=== PATIENT | male | born 1975 | race Caucasian/White ===

== ENCOUNTER 2017-09-11 09:19 | Emergency (ER) | payer BC ==
[2017-09-11 09:58] VITALS: BP 125/77
[2017-09-11] MEDS ORDERED: Ibuprofen TAB* 400 MG PO ONE (10:12)
--- NOTE | 2017-09-11 10:22 | UC ---
Skin Complaint HPI - HPI Summary HPI Summary: 1 week of pain and swelling around left index finger nail---no drainage no injury no fb---has not tried any treatment at home - History of Current Complaint Chief Complaint: UCSkin Time Seen by Provider: 09/11/17 09:52 Stated Complaint: LFT INDEX FINGER INJURY Hx Obtained From: Patient Onset/Duration: Sudden Onset, Lasting Weeks, Still Present Timing: Constant Onset Severity: Moderate Current Severity: Moderate Pain Intensity: 4 Pain Scale Used: 0-10 Numeric Location: Discrete Character: Swelling, Pain, Redness Aggravating Factor(s): Touch Alleviating Factor(s): Nothing Associated Signs & Symptoms: Negative: Drainage, Red Streaks, Joint Swelling - Allergy/Home Medications Allergies/Adverse Reactions: Allergies Allergy/AdvReac Type Severity Reaction Status Date / Time No Known Allergies Allergy Verified 09/11/17 09:46 Home Medications: Home Medications Ibuprofen TAB* [Motrin TAB* 800 MG] 800 mg PO ONCE PRN 09/11/17 [History Confirmed 09/11/17] Levothyroxine TAB* [Synthroid TAB*] 175 mcg PO DAILY 09/11/17 [History Confirmed 09/11/17] Review of Systems Constitutional: Negative Skin: Other - erythema pain and swelling around left index finger nail Eyes: Negative ENT: Negative Respiratory: Negative Cardiovascular: Negative Gastrointestinal: Negative Genitourinary: Negative Motor: Negative Neurovascular: Negative Musculoskeletal: Negative Neurological: Negative Psychological: Negative Is Patient Immunocompromised?: No All Other Systems Reviewed And Are Negative: Yes PMH/Surg Hx/FS Hx/Imm Hx Previously Healthy: No Endocrine History: Hypothyroidism - Surgical History Surgical History: Yes Surgery Procedure, Year, and Place: sinusitis Dr. Licona - Family History Known Family History: Positive: None - Social History Occupation: Employed Full-time Lives: With Family Alcohol Use: Occasionally Substance Use Type: None Smoking Status (MU): Never Smoked Tobacco - Immunization History Most Recent Influenza Vaccination: not 2016/2017 Physical Exam Triage Information Reviewed: Yes Appearance: Well-Appearing, No Pain Distress, Well-Nourished Vital Signs: Initial Vital Signs Temp 98.5 F 09/11/17 09:48 Pulse 68 09/11/17 09:48 Resp 18 09/11/17 09:48 BP 125/77 09/11/17 09:48 Pulse Ox 100 09/11/17 09:48 Vital Signs Reviewed: Yes Eye Exam: Normal Eyes: Positive: Conjunctiva Clear ENT Exam: Normal ENT: Positive: Normal ENT inspection, Hearing grossly normal. Negative: TMs normal, Trismus, Muffled voice, Hoarse voice, Sinus tenderness Dental Exam: Normal Neck exam: Normal Neck: Positive: Supple, Nontender, No Lymphadenopathy Respiratory Exam: Normal Respiratory: Positive: Chest non-tender, No respiratory distress, No accessory muscle use Cardiovascular Exam: Normal Cardiovascular: Positive: RRR, Pulses Normal, Brisk Capillary Refill Musculoskeletal Exam: Normal Musculoskeletal: Positive: Strength Intact, ROM Intact, No Edema Neurological Exam: Normal Neurological: Positive: Alert, Muscle Tone Normal Psychological Exam: Normal Skin Exam: Other Skin: Positive: Other - pain swelling erythmea fluctulant mass lateral left index finger nail Diagnostics - Laboratory Diagnostic Studies Completed/Ordered: wound culture obtained Re-Evaluation - Re-Evaluation Second Eval Change: Improved - tolerated well moderate amount of lurulent drainage , dressing applied Course/Dx - Course Course Of Treatment: warm soaks , bactrim, ibuprofen wound culture follow with pcp prn - Diagnoses Provider Diagnoses: left index finger paronychia I&D Procedures - Incision and Drainage Site: left index fingernail lateral Anesthesia: Other - none Instrument(s): Scalpel Packing: Other - none Discharge - Discharge Plan Condition: Stable Disposition: HOME Prescriptions: Ibuprofen TAB* [Motrin TAB* 800 MG] 800 mg PO Q8H PRN #30 tab PRN Reason: pain Sulfamethox/Trimethoprim DS* [Bactrim DS 800/160 TAB*] 1 tab PO BID #20 tab Patient Education Materials: Paronychia (ED), Abscess Incision and Drainage (DC ), Warm Compress or Soak (ED) Forms: *Work Release Referrals: [facility] [Outside] - If Needed
--- NOTE | 2017-09-12 07:56 | UC ---
- Progress Note Progress Note: RN to call pt. + stapanna, sens pending. Continue antibiotic unless we notify otherwise. Re-Evaluation - Re-Evaluation Second Eval Change: Improved - tolerated well moderate amount of lurulent drainage , dressing applied
== END 2017-09-11 10:31 | disposition home or self-care (01) ==
LOC: UCCORT 09:19
DX: L03.012 Cellulitis of left finger (principal); B95.61 Methicillin susceptible Staphylococcus aureus infection as the cause of diseases classified elsewhere; Z16.11 Resistance to penicillins; Z16.29 Resistance to other single specified antibiotic; E03.9 Hypothyroidism, unspecified
CPT/HCPCS: 10060; 87070; 87077; 87186; 87205; 87640; 87641; 99212; A9270-GY; G0463

== ENCOUNTER 2019-08-10 20:20 | Emergency (ER) | payer BC, OTHER ==
[2019-08-10 20:32] VITALS: BP 143/92
[2019-08-10] MEDS ORDERED: Famotidine TAB* 20 MG PO ONE (20:41)
[2019-08-10] MEDS ORDERED: hydrOXYzine HCL TAB* 25 MG PO ONE (21:22)
--- NOTE | 2019-08-10 21:25 | UC ---
Allergic Reaction HPI - HPI Summary HPI Summary: 44 yo male finished 10 day of amox last PM This am around 9 he developed angioedema of hands and diffuse hives This afternoon slight lip edema noCP or SOB no stridor or throat tightness no n/v/d - History of Current Complaint Chief Complaint: UCAllergicReaction Stated Complaint: ALLERGIC REACTION Time Seen by Provider: 08/10/19 20:35 Hx Obtained From: Patient Onset/Duration: Gradual Onset, Lasting Hours Severity Initially: Mild Severity Currently: Moderate Pain Intensity: 0 Pain Scale Used: 0-10 Numeric Location: Diffuse Character: Swelling, Pruritus, Hives Aggravating Factor(s): Heat Alleviating Factor(s): Nothing Associated Signs And Symptoms: Positive: Rash - Related Hx Possible Reaction To: Medications - Allergies/Home Medications Allergies/Adverse Reactions: Allergies Allergy/AdvReac Type Severity Reaction Status Date / Time amoxicillin Allergy Hives Verified 08/10/19 20:27 PMH/Surg Hx/FS Hx/Imm Hx Previously Healthy: Yes Endocrine History: Thyroid Disease Cardiovascular History: Hypertension - lifestyle modification - Surgical History Surgical History: Yes Surgery Procedure, Year, and Place: Tonsillectomy - Family History Known Family History: Positive: Non-Contributory - Social History Alcohol Use: Occasionally Substance Use Type: None Smoking Status (MU): Never Smoked Tobacco - Immunization History Most Recent Influenza Vaccination: not 2016/2017 Review of Systems All Other Systems Reviewed And Are Negative: Yes Constitutional: Positive: Negative Skin: Positive: Rash Eyes: Positive: Negative ENT: Positive: Negative Respiratory: Positive: Negative Cardiovascular: Positive: Negative Gastrointestinal: Positive: Negative Genitourinary: Positive: Negative Motor: Positive: Negative Neurovascular: Positive: Negative Musculoskeletal: Positive: Negative Neurological: Positive: Negative Psychological: Positive: Negative Physical Exam Triage Information Reviewed: Yes Appearance: Well-Appearing, No Pain Distress, Well-Nourished Vital Signs: Initial Vital Signs Temp 98.7 F 08/10/19 20:27 Pulse 109 08/10/19 20:27 Resp 15 08/10/19 20:27 BP 143/92 08/10/19 20:27 Pulse Ox 95 08/10/19 20:27 Vital Signs Reviewed: Yes Eyes: Positive: Other: - mild lid edema ENT Exam: Normal ENT: Positive: Hearing grossly normal, Uvula midline, Other - mild lip edema. Negative: Nasal congestion, Nasal drainage, Muffled voice, Hoarse voice Dental Exam: Normal Neck: Positive: Supple, Nontender Respiratory: Positive: Lungs clear, Normal breath sounds, No respiratory distress, No accessory muscle use Cardiovascular: Positive: RRR Musculoskeletal: Positive: Edema @ - angioedema of hands Neurological Exam: Normal Psychological Exam: Normal Skin Exam: Other - urticarial rash Diagnostics - Laboratory Lab Results: UA no protein Re-Evaluation - Re-Evaluation First Eval Re-Evaluation Time: 19:40 Change: Improved - decreased angioedema Allergic Reaction Course/Dx - Differential Dx/Diagnosis Provider Diagnosis: Allergic reaction due to antibacterial drug, [id number] Discharge ED - Sign-Out/Discharge Documenting (check all that apply): Patient Departure All imaging exams completed and their final reports reviewed: No Studies - Discharge Plan Condition: Stable Disposition: HOME Prescriptions: hydrOXYzine HCL TAB* [Atarax TAB*] 25 - 50 mg PO QID PRN #20 tab PRN Reason: Itching predniSONE 20 mg TAB [Deltasone 20 MG TAB*] 40 mg PO DAILY #6 tab Patient Education Materials: Angioedema (ED) Forms: *Work Release Referrals: No Primary Care Phys,NOPCP [Primary Care Provider] - Additional Instructions: consider your self penicillin allergic to ER for throat tightness/wheezing/shortness of breath - Billing Disposition and Condition Condition: STABLE Disposition: Home
== END 2019-08-10 21:37 | disposition home or self-care (01) ==
LOC: UCCORT 20:20
DX: T78.3XXA Angioneurotic edema, initial encounter (principal); I10 Essential (primary) hypertension; T36.0X5A Adverse effect of penicillins, initial encounter; Y92.9 Unspecified place or not applicable
CPT/HCPCS: 81003; 99213; A9270-GY; G0463; J7512